=== PATIENT | female | born 1945 | race Caucasian/White ===

== ENCOUNTER → 2020-06-04 14:25 | Outpatient (BNVA) | payer MEDICARE, SELFPAY | PROVIDERS: Family Provider Family Medicine; PCP Family Medicine; Visit Provider Nurse Practitioner Family | DX: E55.9 Vitamin D deficiency, unspecified (principal); E03.9 Hypothyroidism, unspecified | CPT/HCPCS: 36415; 82306; 84439; 84443 ==

== ENCOUNTER → 2020-12-15 09:00 | Outpatient (BNVA) | payer MEDICARE, SELFPAY | PROVIDERS: Family Provider Family Medicine; PCP Family Medicine; Visit Provider Nurse Practitioner Family | DX: I10 Essential (primary) hypertension (principal); E61.2 Magnesium deficiency; E03.9 Hypothyroidism, unspecified; Z68.32 Body mass index [BMI] 32.0-32.9, adult | CPT/HCPCS: 80053; 80061; 83735 ==

== ENCOUNTER → 2021-05-08 11:18 | Outpatient (BNVA) | payer MEDICARE, SELFPAY | PROVIDERS: Family Provider Family Medicine; PCP Nurse Practitioner Family; Visit Provider Nurse Practitioner Family | DX: R10.9 Unspecified abdominal pain (principal) | CPT/HCPCS: 81000 ==

== ENCOUNTER → 2021-05-28 08:04 | Outpatient (BNVA) | payer MEDICARE, SELFPAY | PROVIDERS: Family Provider Family Medicine; PCP Nurse Practitioner Family; Visit Provider Family Medicine | DX: E03.9 Hypothyroidism, unspecified (principal) | CPT/HCPCS: 84439; 84443 ==

== ENCOUNTER → 2021-12-22 10:25 | Outpatient (BNVA) | payer MEDICARE, SELFPAY | PROVIDERS: Family Provider Family Medicine; PCP Nurse Practitioner Family; Visit Provider Nurse Practitioner Family | DX: I10 Essential (primary) hypertension (principal); E55.9 Vitamin D deficiency, unspecified | CPT/HCPCS: 80053; 80061; 82306; 85025 ==

== ENCOUNTER → 2022-05-26 09:04 | Outpatient (BNVA) | payer MEDICARE, SELFPAY | PROVIDERS: Family Provider Family Medicine; PCP Nurse Practitioner Family; Visit Provider Nurse Practitioner Family | DX: E03.9 Hypothyroidism, unspecified (principal); E05.30 Thyrotoxicosis from ectopic thyroid tissue without thyrotoxic crisis or storm | CPT/HCPCS: 84443 ==

== ENCOUNTER → 2022-07-13 09:20 | Outpatient (BNVA) | payer MEDICARE, SELFPAY | PROVIDERS: Family Provider Family Medicine; PCP Nurse Practitioner Family; Visit Provider Nurse Practitioner Family | DX: E78.00 Pure hypercholesterolemia, unspecified (principal); E03.9 Hypothyroidism, unspecified; Z79.899 Other long term (current) drug therapy | CPT/HCPCS: 80053; 80061; 84443 ==

== ENCOUNTER → 2022-09-09 14:06 | Outpatient (BNVA) | payer MEDICARE, SELFPAY | PROVIDERS: Family Provider Family Medicine; PCP Nurse Practitioner Family; Visit Provider Nurse Practitioner Family | DX: M54.9 Dorsalgia, unspecified (principal); M54.6 Pain in thoracic spine | CPT/HCPCS: 81003 ==

== ENCOUNTER 2023-04-08 09:53 | Outpatient (RCR) | payer MEDICARE, SELFPAY | END 2023-04-09 23:59 | disposition home or self-care (01) | LOC: GPT 09:53 | PROVIDERS: Visit Provider Nurse Practitioner Family | DX: M76.62 Achilles tendinitis, left leg (principal) | CPT/HCPCS: 97140; 97161 ==

== ENCOUNTER 2023-04-10 06:00 | Outpatient (RCR) | payer MEDICARE, SELFPAY | END 2023-05-10 23:59 | disposition home or self-care (01) | LOC: GPT 06:00 | PROVIDERS: Visit Provider Nurse Practitioner Family | DX: M76.62 Achilles tendinitis, left leg (principal) | CPT/HCPCS: 97110; 97112; 97140; 97530 ==